=== PATIENT | female | born 1980 | race Caucasian/White ===

== ENCOUNTER 2019-01-15 19:42 | Inpatient (IN) | payer OTHER ==
[~2019-01-15] VITALS: Ht 170.2 cm; Wt 72.6 kg
[2019-01-15] MEDS ORDERED: LR(*) 1000 ML BAG 1,000 ML IV PRN (19:43)
[2019-01-15] MEDS ORDERED: FAMOTIDINE(*) 20MG/50ML PREMIX 50 ML IVPB PRN (19:43)
[2019-01-15] MEDS ORDERED: fentaNYL CITR 100 MCG/2 ML AMP IVP PRN (19:45)
[2019-01-15] MEDS ORDERED: METOCLOPRAMIDE 10 MG/2 ML SDV IVP PRN (19:45)
[2019-01-15] MEDS ORDERED: cefOXitin/DEX(*) 2GM/50ML PREM 50 ML IVPB PRN (19:45)
[2019-01-15] MEDS ORDERED: ZOLPIDEM TARTRATE 5 MG TAB PO PRN (19:45)
[2019-01-15] MEDS ORDERED: LIDOCAINE/SOD BICARB 8.4% SYR SC PRN (19:45)
[2019-01-15] MEDS ORDERED: MISOPROSTOL 25 MCG CAP PV PRN (19:45)
[2019-01-15] MEDS ORDERED: ONDANSETRON 4 MG/2 ML VIAL IVP PRN (19:45)
[2019-01-15] MEDS ORDERED: TERBUTALINE SULF 1 MG/ML VIAL SUBQ PRN (19:45)
[2019-01-15] MEDS ORDERED: ACETAMINOPHEN 500 MG TAB PO PRN (19:45)
[2019-01-15] MEDS ORDERED: DINOPROSTONE 10 MG INSERT PV ONE ×2 (19:45→23:57)
[2019-01-15] MEDS ORDERED: LIDOCAINE 1% LOCAL 300 MG/30ML INJ PRN (19:45)
[2019-01-15 20:30] VITALS: BP 143/78; Ht 170.2 cm; Wt 72.6 kg
[2019-01-15 20:40] LABS: PLATELET COUNT, AUTOMATED 227 K/uL (150-450)
[2019-01-16] MEDS ORDERED: OXYTOCIN 30 UNIT/NS 500 ML 500 ML IV PRN (04:36)
[2019-01-16] MEDS ORDERED: CALCIUM CARBONATE 500 MG CHEW PO PRN (04:40)
--- NOTE | 2019-01-16 07:38 | Anesthesia OB Pre-Anes Eval ---
History of Present Illness Anesthesia Start Date: Jan 16, 2019 Anesthesia Start Time: 07:14 OB Anesthesia Diagnosis: induction - medical (Prior history of shoulder dystocia with 7#8oz baby and this babu U.S. is of equal size.) Complications: None Known but past history of shoulder dystocia with prior . EDC: Jan 28, 2019 : 7 Para: 3 Vital Signs: Vital Signs Date Time Temp Pulse Resp B/P (MAP) Pulse Ox O2 Delivery O2 Flow Rate FiO2 01/15/19 20:30 97.8 81 17 143/78 (99) 100 Room Air Pain Ratin Heart Tones: 138 Result Diagram: 01/15/192026 Height (Inches): 67.00 Weight (Pounds): 160 BMI (kg/m2): 25 Past Medical History Medical History: alcohol use/abuse (2/month x 15 years, denies during ), asthma (exercise induced, well controled), other (Depression worsened by life changes) Surgical History: other (, recurrent misscarriages x 3) Previous Anesthesia: epidural, spinal (SAB and epidurals x 3 for prior deliveries.) Attended Childbirth Classes?: Yes (with 1st child in 2012) Hx Anesthesia Reactions: No Hx Family Anesthesia Reaction: No Current Medications: pitocin (cervidill) Past Complications: other (Shoulder dystocia and subchorionic hemorrhage 2014, hypothyroid w 3rd live ,) Allergies: Coded Allergies: No Known Drug Allergies (Unverified , 01/16/19) Anesthesia OB ROS Neurological: other (depression); No migraines/headaches, No seizures, No neuropathy Eyes ROS: other (no contacts) ENT: Denies Tooth caps, Denies Loose teeth, Denies Chipped teeth, Denies Dentures, Denies Bridges, Denies Retainers, Denies Veneers, Denies Implants, Denies Tongue ring, Denies Other Pulmonary: asthma Airway Class: ll Cardiovascular ROS: No edema, No arrhythmia, No other GI ROS: clear liquids Last Solids Date: Jan 16, 2019 Last Solids Time: 04:00 ROS: No Herpes, No STD(s), No Liver Disease, No Renal Disease, No Other Endocrine ROS: thyroid disorder (Low thyroid after prior delivery) Musculoskeletal ROS: No low back pain, No low back injury, No scoliosis, No other ASA Classification: 2 Assessment and Plan Anesthesia Plan: CSE Assessment Alert calm female with pitocin just started, in good labor pattern at 4 cm d ilation. She is considering epidural and has had successful experiences with past epidurals. Questions are answered, risks reviewed. DHEERAJ PHILLIPS GUNNERY/ORDNANCE OFFICER Jan 16, 2019 07:37
--- NOTE | 2019-01-16 08:37 | History & Physical ---
History of Present Illness Age of Patient: 38 : 7 Para or TPAL: 3033 EDC per LMP: Jan 28, 2019 EDC per U/S: Jan 22, 2019 Estimated Gestational Age: 38.2 Chief Complaint Labor induction History of Present Illness Presents for labor induction, a little early due to her history of shoulder dystocia with her daughter at 8#s 6oz. Her other deliveries were 7#s. has been relatively uncomplicated with one episode of dehydration resolved with hydration and her most recent u/s predicting EFW of over 8#s. On 01/06 EFW was 3484gm (7#11oz). Reviewed pros and cons of induction of labor and pt with favorable cervix also. Also reviewed risks of delivery before 39 weeks and they are minor compared to the potential for shoulder dystocia. She is in agreement to proceed with IOL. Received Cervadil last night and transitioning to Pitocin today. History Allergies: Coded Allergies: No Known Drug Allergies (Unverified , 01/16/19) Review of Systems All Systems Reviewed/Normal: Yes, Except as Noted Exam General Exam Vital Signs Vital Signs Date Time Temp Pulse Resp B/P (MAP) Pulse Ox O2 Delivery O2 Flow Rate FiO2 01/15/19 20:30 97.8 81 17 143/78 (99) 100 Room Air General Apperance: Alert/Awake/No Acute Distress Neuro: No Gross deficits Abdomen: Soft, Non-Tender, Non-Distended, Fundus - Tender Integumentary: Skin Intact without Lesions or Rash Psychological: Alert & Oriented X3, Appropriate Mood & Affect Cervical Dialation: 4.5 Cervical Effacement (%): 90 Cervical Consistency: Soft Cervical Position: Mid Station: -2 Presentation: Vertex Fetus Heart Tone Variabilty: Moderate FHT Accelerations: 15X15 FHT Category: I Medical Decision Making Data Points Result Diagram: 01/15/192026 VTE Prophylasis: Adult Deep Vein Thrombosis/Pulmonary: No Pharmacological Contraindicati: Pt at Low Risk for VTE Mechanical Contraindications: Pt at Low Risk for VTE 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 AROM done with clear fluid noted. Epidural if needed. (2) History of shoulder dystocia in prior , currently in third trimester Assessment & Plan: Will be alert to the signs of dystocia and manage accordingl y. (3) AMA (advanced maternal age) multigravida 35+ Assessment & Plan: She had a normal first trimester screen and declined any further screening. Problem Qualifiers (1) AMA (advanced maternal age) multigravida 35+: Trimester: third trimester Qualified Codes: O09.523 - Supervision of elderly multigravida, third trimester NIR CARABALLO MD Jan 16, 2019 08:37
[2019-01-16] MEDS ORDERED: BUPIVACAINE 0.5% INJ 30ML VIAL EPI PRN (10:00)
[2019-01-16] MEDS ORDERED: LIDOCAINE/PF 2% 200MG/10ML AMP 200 MG/10 ML AMPUL EPI PRN (10:00)
[2019-01-16] MEDS ORDERED: FENTANYL/ROPIVACAINE 100 ML BAG EPI PRN (10:00)
[2019-01-16] MEDS ORDERED: BUPIVACAINE 0.25% MPF INJ EPI PRN (10:00)
[2019-01-16] MEDS ORDERED: LIDO/EPI 2% MPF 1:200,000 20ML EPI PRN (10:00)
[2019-01-16] MEDS ORDERED: fentaNYL CITR 100 MCG/2 ML AMP IT PRN (10:00)
[2019-01-16] MEDS ORDERED: FENTANYL/ROPIVACAINE 100ML BAG 0 ML ONE (10:18)
[2019-01-16] MEDS ORDERED: ePHEDrine 25 MG/5 ML DISP.SYR IVP ONE (10:20)
--- NOTE | 2019-01-16 11:34 | Procedure Note ---
Anesthetic Placement Note Anesthesia Plan: CSE Permit for Anesthesia Signed: Yes Anesthesia Technique: Patient Sitting Anesthesia Prep: Chlorhexidine (Clear fen drape, traffic stopped Hats to all in rm personnel, HABILITATIVE INTERVENTIONIST sterile scrub. Time out, Sterile gloves, mask.) Interspace: L 4-5 (midline) Local Anesthetic: 1% Lidocaine, 25 Gauge Needle Amount Local - cc's: 2 Anesthesia Needle: 17g Touhy/Schliff Anesthesia Attempts: 1 Loss of Resistance: Normal Saline Depth of JOHN (cm): 3.7 Epidural Needle Placement: No CSF; Blood (Sanguinous, cleared w flush); No Parasthesia Intrathecal Needle: 27 Gauge Pencan Cerebral Spinal Fluid: Yes Catheter Insertion (cm): 3.5 Catheter Type: Ramon - Spring Wound Epidural Dressing: Tegaderm, Tape Anesthesia Tray: Lot Number ([id number]), Expiration Date (2020-01-16), Reference Number ([id number]) Comment: Pt in good position, calm and cooperative. Her pain 8/10 decreased to 1/10 within 2 minutes of intrathecal. Anesthesia Medications: Intrathecal Dose: mcg Fentanyl (20), mg Marcaine MPF (1.9), Time (1032) Epidural Test Dose: 1.5 Lido/Epi (1:200,000), Dose - mL (3), Time (1036), Negative Epidural Loading Dose: Other (none) Epidural Infusion: Other (pump in room but not connected to pt) Epidural Pump Setting: Bolus Dose - mL (6), Lockout - Minutes (20), Maintenance Rate - mL/hr (10) Complications: None Comment: pump not started as patient found to be in transition and rapidly progressed to complete, once she was comfortable. She delivered at 1126 active crying .jean. She remains comfortable, DHEERAJ PHILLIPS CRNA Jan 16, 2019 11:34
--- NOTE | 2019-01-16 11:37 | Anesthesia Progress Note ---
Progress/Maintenance Anesthesia Note Date: Jan 16, 2019 Anesthesia Note Time: 11:32 Pain Intensity: 0 Pump: Off Pump Rate (ML/HR): 0 Sensory Level: T 9 Motor Level: Bending Knees-Bilateral Assessment and Plan Anesthesia Plan: CSE Assessment Pt has delivered @ 1126, fundus firm after placental delivery. Pitocin remains at bedside. Anesthesia Stop Time: 11:26 DHEERAJ PHILLIPS CRNA Jan 16, 2019 11:37
--- NOTE | 2019-01-16 11:54 | OB Delivery Note ---
Delivery Note Vaginal Delivery Type: Spont. Vaginal Delivery Delivery Date: Jan 16, 2019 Delivery Time: 11:26 Estimated Gestational Age(wks): 38.3 Delivery Anesthesia: Epidural Sex: Male Infant Weight (gms): 3930 Flippin Apgars: 1 Minute (9), 5 Minute (9) Repair Needed: Laceration, 2nd Degree Estimated Blood Loss: 100 Delivery Complications: Laceration, Nuchal Cord (x 2), Other (thin meconium) Notes: Presented for labor induction. Cervidil last night at 3-4 cm dilation. Transitioned to Pitocin today and progressed regularly to 7 cm at 0938 and then receieved epidural at 0955. Progressed to completely dilated at 1053. When I presented baby in ROP position. Assembled for delivery in dorsal lithotomy position with head up. Over next contraction manual rotation of head to DHIRAJ position with a push effected delivery of head over second degree laceration. Nuchal cord x 2, reduced. Shoulders delivered with the next push without manipulation and baby had right hand presenting along the left face. Remainder of baby followed without difficulty. Placenta delivered spontaneous and intact. Uterus massaged firm. Repair with 2-0 Chromic with excellent result. No complications. 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
[2019-01-16 13:45] VITALS: BP 100/58
[2019-01-16] MEDS ORDERED: ACETAMINOPHEN 325 MG TAB PO PRN (14:30)
[2019-01-16] MEDS ORDERED: HYDROCORTISONE 2.5% CR 30GM TB PR PRN (14:30)
[2019-01-16] MEDS ORDERED: GLYCERIN/WITCH HAZEL LEAF 1 PK TP PRN (14:30)
[2019-01-16] MEDS ORDERED: LANOLIN OINT 7 GM TUBE TP PRN (14:30)
[2019-01-16] MEDS ORDERED: BENZOCAINE 20% 60 ML BTL TP PRN (14:30)
[2019-01-16] MEDS ORDERED: APAP/HYDROCODONE 325/5 TAB PO PRN (14:30)
[2019-01-16] MEDS ORDERED: MAGNESIUM HYDROXIDE* 30ML UDCP PO PRN (14:30)
[2019-01-16 15:17] VITALS: BP 112/61
[2019-01-16] MEDS: IBUPROFEN 800 MG TAB PO SCH (15:17)
[2019-01-16 20:00] VITALS: BP 120/62
[2019-01-16] MEDS: DOCUSATE CALCIUM 240 MG CAP PO SCH (20:57)
[2019-01-17] MEDS: IBUPROFEN 800 MG TAB PO SCH (00:25)
[2019-01-17 03:15] VITALS: BP 104/56
[2019-01-17 08:22] VITALS: BP 109/58
[2019-01-17] MEDS ORDERED: IBUPROFEN 800 MG TAB PO SCH (08:30)
[2019-01-17] MEDS ORDERED: MULTIVITAMINS (PRENATAL) TAB PO SCH (09:00)
[2019-01-17] MEDS: DOCUSATE CALCIUM 240 MG CAP PO SCH (09:06)
--- NOTE | 2019-01-17 09:32 | OB/GYN Progress Note ---
OB Subjective Progress Notes Subjective Doing well. Pain well controlled and ambulating well. Bleeding light. Voiding well. GI: NEG Nausea : Voiding Well Pain: Mild OB Objective Physical Exam Vital Signs Date Time Temp Pulse Resp B/P (MAP) Pulse Ox O2 Delivery O2 Flow Rate FiO2 01/17/19 03:15 67 14 104/56 (72) 93 Room Air 01/16/19 20:00 98.0 Intake and Output 01/17/19 07:02 Output Total 1200 ml Balance -1200 ml Output Urine Total 1200 ml # Voids 2 General Appearance: Alert/Awake/No Acute Distress Neurological: No Gross deficits Cardiovascular: Normal Rhythm & Peripheral Pulses, Regular Rate and Rhythm Respiratory: No Respiratory Distress, Clear to Auscultation Abdomen: Soft, Non-Tender, Non-Distended Integumentary: Skin Intact without Lesions or Rash Psychological: Alert & Oriented X3, Appropriate Mood & Affect Result Diagram: 01/17/19 0550 Assessment and Plan 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
[2019-01-17] MEDS ORDERED: IBUP800T37 PO (09:33)
--- NOTE | 2019-01-17 09:35 | OB/GYN Discharge Summary ---
Discharge Summary Reason for Hosp/Final Diag: (1) 38 weeks gestation of (2) History of shoulder dystocia in prior , currently in third trimester (3) AMA (advanced maternal age) multigravida 35+ (4) care and examination immediately after delivery Lates Vital Signs Vital Signs Date Time Temp Pulse Resp B/P (MAP) Pulse Ox O2 Delivery O2 Flow Rate FiO2 01/17/19 03:15 67 14 104/56 (72) 93 Room Air 01/16/19 20:00 98.0 Weight (Pounds): 160 Result Diagram: 01/17/19 0550 Condition: Improved Discharge: Home, Self [facility] Meds Active Scripts Ibuprofen (IBUPROFEN) 800 Mg Tablet, 800 MG PO Q8H PRN for PAIN, #30 TAB 0 Refills Prov:NIR FERGUSON MD 01/17/19 Follow up Referrals: 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 Ferguson [phone] Follow up in: 6 wks PP or PO Discharge Diet: As Tolerates Discharge Activity: As Tolerates, No Heavy Lifting x 6 wks, No Heavy Lifting > 10lb, Pelvic Rest Copies to: NIR FERGUSON MD ; Problem Qualifiers (1) AMA (advanced maternal age) multigravida 35+: Trimester: third trimester Qualified Codes: O09.523 - Supervision of elderly multigravida, third trimester NIR FERGUSON MD Jan 17, 2019 09:35
[2019-01-17 12:05] VITALS: BP 112/65
[2019-01-17] MEDS ORDERED: MEASLES,MUMP,RUBELLA VAC 0.5ML SUBQ ONE (14:30)
[2019-01-17] MEDS ORDERED: INFLUENZA VIRUS VAC 0.5ML SYR IM ONLY ONE (14:30)
[2019-01-17] MEDS ORDERED: DIPHTH/TETANUS/ACEL. PERTUSSIS IM ONLY ONE (14:30)
== END 2019-01-17 15:30 | disposition home or self-care (01) | DRG 807 ==
LOC: OB 19:42
PROVIDERS: ADMIT Obstetrics & Gynecology; ATTEND Obstetrics & Gynecology
PROC: 10E0XZZ Delivery of Products of Conception, External Approach (ICD-10-PCS; principal; 2019-01-15)
PROC: 0KQM0ZZ Repair Perineum Muscle, Open Approach (ICD-10-PCS; 2019-01-15)
PROC: 3E0P7VZ Introduction of Hormone into Female Reproductive, Via Natural or Artificial Opening (ICD-10-PCS; 2019-01-15)
DX: O69.81X0 Labor and delivery complicated by cord around neck, without compression, not applicable or unspecified (principal); Z37.0 Single live birth; O77.0 Labor and delivery complicated by meconium in amniotic fluid; O70.1 Second degree perineal laceration during delivery; Z3A.38 38 weeks gestation of pregnancy
CPT/HCPCS: 36415; 85025; 85027; 86850; 86900; 86901